=== PATIENT | female | born 1940 | race Two or more races ===

== ENCOUNTER 2017-01-05 17:38 | Emergency (ER) | payer MEDICARE ==
[~2017-01-05] VITALS: Ht 157.5 cm; Wt 64.0 kg
[2017-01-05] MEDS ORDERED: cloNIDine HCL 0.1 MG TAB PO ONE (19:15)
[2017-01-05 19:20] LABS: Basophils # (auto) 0.1 uL; Basophils % (auto) 1.4 % (0.0-2.0); Eosinophils # (auto) 0.2 uL; Eosinophils % (auto) 2.8 % (0.0-7.0); Hematocrit 41.7 % (36.0-46.0); Hemoglobin 14.8 g/dL (12.2-16.2); Lymphocytes # (auto) 2.2 uL; Lymphocytes % (auto) 28.1 % (10.0-50.0); Mean Corpuscular Hemoglobin 32.3 pg (28.0-32.0); Mean Corpuscular Hgb Conc. 35.5 g/dL (32.0-36.0); Mean Corpuscular Volume 90.9 fL (80.0-100.0); Mean Platelet Volume 7.5 fL (6.9-10.8); Monocytes # (auto) 0.7 uL; Monocytes % (auto) 9.4 % (0.0-12.0); Neutrophils # (auto) 4.5 uL; Neutrophils % (auto) 58.3 % (37.0-80.0); Nucleated Red Blood Cells % 0.1 %; Platelet Count (auto) 259 10^3/uL (140-450); Red Cell Distribution Width 14.6 % (11.8-14.3); White Blood Cell 7.7 10^3/uL (4.4-10.8)
[2017-01-05 19:22] LABS: Albumin 4.1 g/dL (3.4-5.0); Anion Gap 12 (5-15); Aspartate Aminotransferase 20 U/L (15-37); BUN/Creatinine Ratio 23.7; Blood Urea Nitrogen 27 mg/dL (7-18); Calcium 8.5 mg/dL (8.5-10.1); Carbon Dioxide 27 mmol/L (21-32); Chloride 100 mmol/L (98-107); GFR African American 59 mL/min; GFR Non-African American 49 mL/min; Glucose 161 mg/dL (74-106); Potassium 3.4 mmol/L (3.5-5.1); Sodium 139 mmol/L (136-145)
[2017-01-05 19:34] LABS: Alkaline Phosphatase 90 U/L (45-117); Bilirubin, Total 0.7 mg/dL (0.2-1.0); Total Protein 7.3 g/dL (6.4-8.2)
[2017-01-05 19:41] LABS: Urine RBC None Seen /hpf (0 - 4)
[2017-01-05 19:59] LABS: Urine Bilirubin Negative (Negative); Urine Blood Negative /uL (Negative); Urine Color Yellow (Yellow); Urine Glucose Normal (Normal); Urine Ketone Negative (Negative); Urine Nitrite Negative (Negative); Urine Urobilinogen Normal (Negative)
[2017-01-05] MEDS ORDERED: POTASSIUM CHL 10 Meq TABLET PO ONE (22:00)
[2017-01-05] MEDS ORDERED: cefTRIAXone 1GM/50ML D5W 50 ML IV ONE (22:00)
[2017-01-05 23:25] VITALS: BP 105/70
[2017-01-05 23:34] LABS: B-Type Natriuretic Peptide 8.44 pg/mL (0-100)
[2017-01-05 23:44] LABS: Temperature: 23.3 C (20.0-25.0)
== END 2017-01-05 21:31 | disposition home or self-care (01) ==
LOC: ER 17:41
DX: I10 Essential (primary) hypertension (principal); E87.6 Hypokalemia; N30.00 Acute cystitis without hematuria; E11.9 Type 2 diabetes mellitus without complications; Z88.2 Allergy status to sulfonamides; Z88.6 Allergy status to analgesic agent; Z88.1 Allergy status to other antibiotic agents
CPT/HCPCS: 36415; 70450; 71010; 80053; 81001; 83880; 84484; 85025; 87086; 87088; 87186; 93005; 94761; 96365; 99285; J0696

== ENCOUNTER → 2018-04-03 | Outpatient (CLI) | payer MEDICARE | END | disposition home or self-care (01) | LOC: LAB 16:29 | PROVIDERS: ATTEND Physician Assistant | DX: N39.0 Urinary tract infection, site not specified (principal) | CPT/HCPCS: 87086; 87088; 87186 ==

== ENCOUNTER 2024-06-30 14:48 | Emergency (ER) | payer MEDICARE ==
[~2024-06-30] VITALS: Ht 157.5 cm; Wt 56.0 kg
[2024-06-30 17:15] VITALS: PULSE 57; RESP 18; O2SAT 97
[2024-06-30] MEDS: ACETAMINOPHEN 500 MG TAB or CAP PO ONE (17:56)
--- NOTE | 2024-06-30 18:04 | DVH ---
CLINICAL INDICATION: pain s/p foosh TECHNIQUE: 2 radiographic views of the right shoulder were obtained. Comparison: None FINDINGS/IMPRESSION: There is no evidence of acute fracture or dislocation. If symptoms persist consider MRI. The visualized joint space is well maintained. The alignment is anatomical. There is no radiopaque foreign body.
--- NOTE | 2024-06-30 18:09 | DVH ---
CLINICAL INDICATION: pain s/p foosh TECHNIQUE: 2 radiographic views of the right humerus were obtained. Comparison: None FINDINGS/IMPRESSION: There is no evidence of acute fracture or dislocation. Slight inferior subluxation of the humeral hea d with [id number] degenerative changes of the right shoulder Moderate degenerative changes of the right AC joint.
--- NOTE | 2024-06-30 18:10 | DVH ---
CLINICAL INDICATION: pain s/p foosh TECHNIQUE: 3 radiographic views of the right clavicle were obtained. Comparison: None FINDINGS/IMPRESSION: There is no evidence of acute traumatic fractures. Moderate degenerative changes of the right AC eboni nt. Slight inferior displacement of the humeral head which may be seen with joint effusion.
--- NOTE | 2024-06-30 18:23 | ED.PDOC ---
Musculoskeletal HPI Comments 84-year-old female brought in by friend complaining of right shoulder pain since yesterday. Patient states she slipped and fell yesterday around 1700, falling onto an outstretched right upper extremity. She states she was able to stand and ambulate after the fall, and denies hitting her head. She reports pain in the right clavicle area and right shoulder, stating she is having difficulty raising her right arm. She denies any numbness, weakness or limited passive range of motion. Chief Complaint: Upper Extremity Time Seen by MD: 15:11 Primary Care Provider: SCARLET Reviewed Notes: Medications, Allergies Allergies: Coded Allergies: Ciprofloxacin (Verified Allergy, Unknown, 01/05/17) Codeine (Verified Allergy, Unknown, 01/05/17) Sulfa Antibiotics (Unverified Allergy, Unknown, 01/05/17) Home Meds Active Scripts Meloxicam (Meloxicam) 7.5 Mg Tab, 1-2 TAB PO DAILY PRN, #30 TAB 2 Refills prn pain Prov:JEFFERSON ROTHMAN MD 06/30/24 Acetaminophen (Tylenol) 325 Mg Cap, 650 MG PO Q4HP PRN, #30 CAP prn pain Prov:JEFFERSON ROTHMAN MD 06/30/24 Mode of Arrival: Ambulatory Past Medical History PAST MEDICAL HISTORY: DM, HTN Surgical History: Hysterectomy, Thyroidectomy Surgical History (Other): Right rotator cuff repair, eye surgery, Mohs LE[employer]ING CENTER COORDINATOR History: No Pertinent LEARNING CENTER COORDINATOR History Family History Family History: Reviewed,noncontributory to illness Social History Smoker: Non-Smoker Alcohol: Denies ETOH Use Drugs: Denies Drug Use Lives In: Home Constitutional: denies: chills, diaphoresis, fatigue, fever, malaise, sweats, weakness, others EENTM: denies: blurred vision, double vision, ear bleeding, ear discharge, ear drainage, ear pain, ear ringing, eye pain, eye redness, hearing loss, mouth pain, mouth swelling, nasal discharge, nose bleeding, nose congestion, nose pain, photophobia, tearing, throat pain, throat swelling, voice changes, others Respiratory: denies: cough, hemoptysis, orthopnea, SOB at rest, shortness of breath, SOB with excertion, stridor, wheezing, others Cardiovascular: denies: chest pain, dizzy spells, diaphoresis, Dyspnea on exertion, edema, irregular heart beat, left arm pain, lightheadedness, palpitations, PND, syncope, others Gastrointestinal: denies: abdomen distended, abdominal pain, blood streaked bowels, constipated, diarrhea, dysphagia, difficulty swallowing, hematemesis, melena, nausea, poor appetite, poor fluid intake, rectal bleeding, rectal pain, vomiting, others Genitourinary: denies: abnormal vagina bleeding, burning, dyspareunia, dysuria, flank pain, frequency, hematuria, incontinence, pain, , vagina discharge, urgency, others Neurological: denies: dizziness, fainting, headache, left sided numbness, left sided weakness, numbness, paresthesia, pre-existing deficit, right sided numbness, right sided weakness, seizure, speech problems, tingling, tremors, weakness, others Musculoskeletal: reports: joint pain (R shoulder); denies: back pain, gout, joint swelling, muscle pain, muscle stiffness, neck pain, others Integumetry: denies: bruises, change in color, change in hair/nails, dryness, laceration, lesions, lumps, rash, wounds, others Allergic/Immunocompromised: denies: Difficulty Healing, Frequent Infections, Hives, Itching, others Hematologic/Lymphatic: denies: anemia, blood clots, easy bleeding, easy bruising, swollen glands, others Endocrine: denies: excessive hunger, excessive sweating, excessive thirst, excessive urination, flushing, intolerance to cold, intolerance to heat, unexplained weight gain, unexplained weight loss, others Psychiatric: denies: anxiety, bipolar disorder, depression, hopeless, panic disorder, schizophrenia, sleepless, suicidal, others All Other Systems: Reviewed and Negative (Comprehensive systems review obtained and negative except for what is stated in the HPI.) Physical Exam General Appearance: No Apparent Distress HEENT: PERRL/EOMI Neck: Full Range of Motion, Non-Tender, Normal Inspection, Supple Respiratory: Chest Non-Tender, Lungs Clear, No Accessory Muscle Use, No Respiratory Distress, Normal Breath Sounds Cardiovascular: No Edema, No JVD, Regular Rate/Rhythm Breast Exam: Deferred Gastrointestinal: Non Tender, Soft Genitalia: Deferred Pelvic: Deferred Rectal: Deferred Extremities: Normal inspection, Tender, Other (Right clavicular tenderness of the mid distal aspect, right shoulder diffuse soft tissue tenderness, soft tissue tenderness proximal aspect upper arm, painful abduction and flexion at the right shoulder joint. Full PROM.) Neurologic: Alert (Oriented x4), Normal Affect, Normal Mood, Other (Ambulatory. No gross focal deficit.) Cerebellar Function: NOT DONE Reflexes: NOT DONE Skin: Dry, Normal Color, Warm Lymphatic: NOT DONE Was a procedure done? Was a procedure done?: No Differential Diagnosis EXT Differential Diagnosis: Fracture, Sprain, Dislocation, Strain, Arthritis, Bursitis, Other (Rotator cuff injury or other soft tissue injury, among others) X-Ray, Labs, Meds, VS Vital Signs Date Time Temp Pulse Resp B/P (MAP) Pulse Ox O2 Delivery O2 Flow Rate FiO2 06/30/24 17:15 57 18 97 Room Air* 0 21 06/30/24 17:14 97.6 57 16 180/78 (112) 97 97.6 06/30/24 15:00 97.6 66 16 170/94 (119) 97 Current Medications Medications (Trade) Dose Ordered Sig/Shala Route Start Time Stop Time Status Last Admin Acetaminophen (Tylenol Tablet Or Capsule) 1,000 mg ONCE ONCE PO 06/30/24 17:45 06/30/24 17:46 DC 06/30/24 17:56 [place] [id number] Ph: [phone] DIAGNOSTIC IMAGING Diagnostic Imaging Report : [id number] Signed PATIENT: ROBBIN VEGA ACCT: [id number] UNIT: [id number] : 1940 LOC: ER ROOM / BED: / AGE / SEX: 84 / F ADM STATUS: REG ER SERVICE [id number] ORDERING PHYSICIAN: JEFFERSON ROTHMAN MD PROCEDURE(s): RSHD2 - R SHOULDER 2+ VIEW XRAY REASON: pain s/p foosh ORDER NUMBER(s): [id number], ACCESSION NUMBER(s): [id number] CLINICAL INDICATION: pain s/p foosh TECHNIQUE: 2 radiographic views of the right shoulder were obtained. Comparison: None FINDINGS/IMPRESSION: There is no evidence of acute fracture or dislocation. If symptoms persist consider MRI. The visualized joint space is well maintained. The alignment is anatomical. There is no radiopaque foreign body. ATED BY: TAMMY KWAN Jr., DO DICTATED DATE/TIME: 06/30/241801 SIGNED BY: TAMMY KWAN Jr., DO SIGNED DATE/TIME: 06/30/241801 CC: [place] [id number] Ph: [phone] DIAGNOSTIC IMAGING Diagnostic Imaging Report : [id number] Signed PATIENT: ROBBIN VEGA ACCT: [id number] UNIT: [id number] : 1940 LOC: ER ROOM / BED: / AGE / SEX: 84 / F ADM STATUS: REG ER SERVICE 34 ORDERING PHYSICIAN: JEFFERSON ROTHMAN MD PROCEDURE(s): RHUM - R HUMERUS XRAY REASON: pain s/p foosh ORDER NUMBER(s): [id number], ACCESSION NUMBER(s): [id number] CLINICAL INDICATION: pain s/p foosh TECHNIQUE: 2 radiographic views of the right humerus were obtained. Comparison: None FINDINGS/IMPRESSION: There is no evidence of acute fracture or dislocation. Slight inferior subluxation of the humeral head with [id number] degenerative changes of the right shoulder Moderate degenerative changes of the right AC joint. ATED BY: MARGIE MICHEL DO DICTATED DATE/TIME: 06/30/241805 SIGNED BY: MARGIE MICHEL DO SIGNED DATE/TIME: 06/30/241805 CC: [place] [id number] Ph: [phone] DIAGNOSTIC IMAGING Diagnostic Imaging Report : [id number] Signed PATIENT: ROBBIN VEGA ACCT: [id number] UNIT: [id number] : 1940 LOC: ER ROOM / BED: / AGE / SEX: 84 / F ADM STATUS: REG ER SERVICE 34 ORDERING PHYSICIAN: JEFFERSON ROTHMAN MD PROCEDURE(s): RCLAV - R CLAVICLE COMPLETE XRAY REASON: pain s/p foosh ORDER NUMBER(s): [id number], ACCESSION NUMBER(s): [id number] CLINICAL INDICATION: pain s/p foosh TECHNIQUE: 3 radiographic views of the right clavicle were obtained. Comparison: None FINDINGS/IMPRESSION: There is no evidence of acute traumatic fractures. Moderate degenerative changes of the right AC joint. Slight inferior displacement of the humeral head which may be seen with joint effusion. ATED BY: MARGIE MICHEL DO DICTATED DATE/TIME: 06/30/241807 SIGNED BY: MARGIE MICHEL DO SIGNED DATE/TIME: 06/30/241807 CC: X-Ray, Labs, Meds, VS Comment 84-year-old female with a history of hypertension, diabetes and prior rotator cuff surgery complaining of right shoulder pain status post mechanical fall yesterday. Vitals remarkable for BP 170/94 Exam remarkable for right clavicular tenderness and right shoulder diffuse tenderness with painful abduction and flexion Right clavicle x-rays FINDINGS/IMPRESSION: There is no evidence of acute traumatic fractures. Moderate degenerative changes of the right AC joint. Slight inferior displacement of the humeral head which may be seen with joint effusion. Right shoulder x-rays FINDINGS/IMPRESSION: There is no evidence of acute fracture or dislocation. If symptoms persist consider MRI. The visualized joint space is well maintained. The alignment is anatomical. There is no radiopaque foreign body. Right humerus x-rays PROCEDURE(s): RHUM - R HUMERUS XRAY REASON: pain s/p [place] ORDER NUMBER(s): [id number], ACCESSION NUMBER(s): [id number] CLINICAL INDICATION: pain s/p foosh TECHNIQUE: 2 radiographic views of the right humerus were obtained. Comparison: None FINDINGS/IMPRESSION: There is no evidence of acute fracture or dislocation. Slight inferior subluxation of the humeral head with [id number] degenerative changes of the right shoulder Moderate degenerative changes of the right AC joint. Patient treated with the following in the ED: Tylenol 1 g p.o.. The right upper extremity was placed in a sling for comfort. The right upper extremity was neurovascularly intact after the splint was applied Patient stated pain had improved. Vitals were stable. Patient was advised regarding workup findings, my impression, treatment plan and follow-up recommendations, specifically to follow-up with her orthopedist within the next 2 days for further evaluation, including MRI of her shoulder to evaluate for j oint effusion or rotator cuff injury, or other soft tissue injury. Patient expressed understanding and agreed. Rx Tylenol, Mobic Time of 1ST Reevaluation: 18:28 Reevaluation 1ST: Improved Patient Education/Counseling: Diagnosis, Treatment Family Education/Counseling: Diagnosis, Treatment Departure 1 Departure Time of Disposition: 18:36 Impression: Primary Impression: Right shoulder strain Qualified Codes: S46.911A - Strain of unspecified muscle, fascia and tendon at shoulder and upper arm level, right arm, initial encounter Disposition: HOME / SELF CARE / HOMELESS Condition: Stable Additional Instructions: Your x-rays did not show any broken bones. You may have a soft tissue injury which can not be seen on x-ray. Follow-up with your orthopedist in 1-2 days for further evaluation and MRI of your shoulder. Return to ER for persistent or worsening symptoms. I have prescribed pain medication. e-Prescriptions Meloxicam (Meloxicam) 7.5 Mg Tab 1-2 TAB PO DAILY PRN, #30 TAB 2 Refills prn pain Prov: JEFFERSON ROTHMAN MD 06/30/24 Acetaminophen (Tylenol) 325 Mg Cap 650 MG PO Q4HP PRN, #30 CAP prn pain Prov: JEFFERSON ROTHMAN MD 06/30/24 Discharged With: Friend Critical Care Note Critical Care Time?: No Stability Stability form required: No Heart Score Heart Score: Heart Score Response (Comments) Value History N/A 0 EKG N/A 0 Age N/A 0 Risk Factors N/A 0 Troponin N/A 0 Total 0 I personally scribed for JEFFERSON ROTHMAN MD ([email or web address]) on 06/30/24 at 19:38. Electronically submitted by Janice Orozco ([email or web address]). JEFFERSON ROTHMAN MD Jun 30, 2024 18:23
[2024-06-30] MEDS ORDERED: ACET1CAP14 PO (18:39)
[2024-06-30] MEDS ORDERED: MELO7.5T7 PO (18:39)
[2024-06-30 20:21] VITALS: BP 159/77; PULSE 54; RESP 16; TEMP 97.7; O2SAT 96
== END 2024-06-30 20:45 | disposition home or self-care (01) ==
LOC: ER 14:48
DX: S46.911A Strain of unspecified muscle, fascia and tendon at shoulder and upper arm level, right arm, initial encounter (principal); I10 Essential (primary) hypertension; E11.9 Type 2 diabetes mellitus without complications; Z90.710 Acquired absence of both cervix and uterus; Z98.890 Other specified postprocedural states; Z88.1 Allergy status to other antibiotic agents; Z88.2 Allergy status to sulfonamides; Z88.5 Allergy status to narcotic agent; Z79.899 Other long term (current) drug therapy; W01.0XXA Fall on same level from slipping, tripping and stumbling without subsequent striking against object, initial encounter; Y93.89 Activity, other specified; Y92.89 Other specified places as the place of occurrence of the external cause; Y99.8 Other external cause status
CPT/HCPCS: 73000; 73030; 73060